=== PATIENT | male | born 1965 | race Caucasian/White ===

== ENCOUNTER 2016-08-10 19:41 | Emergency (ER) | payer OTHER ==
[~2016-08-10] VITALS: Ht 177.8 cm; Wt 122.7 kg
[2016-08-10 19:44] VITALS: BP 125/83; PULSE 64; RESP 16; O2SAT 96
[2016-08-10] MEDS ORDERED: TETANUS TOXOID ADSORBED IM ONE (21:00)
--- NOTE | 2016-08-10 21:09 | ED.REPORT ---
HPI-General Illness Date of Service Aug 10, 2016 ED Provider: Vasquez Last DO Mr. Trace Palacios is a 50-year-old man who presents to the scheduled time emergency department with a 2 cm laceration on the lateral palmar aspect midway on the first digit on the left hand. He states that around 3 PM he was chiseling and slipped and cut his thumb had a difficult time stopping the bleeding. He states that he does not have decreased sensation also states that he does not have decreased range of motion and the bleeding was never pulsatile. Nursing Notes Stated Complaint: L HAND LACERATION Chief Complaint: Laceration Nursing Notes Reviewed: Yes Allergies: Coded Allergies: No Known Allergies (Unverified , 08/10/16) General Time Seen by MD: 21:00 Chief Complaint Other (Left 1st digit 3cm lateral aspect mid way laceration) Physical Exam Vital Signs Vital Signs Date Time Temp Pulse Resp B/P Pulse Ox O2 Delivery O2 Flow Rate FiO2 08/10/16 19:44 36.2 64 16 125/83 96 Room Air General/Constitutional: Well-developed, Well-nourished Head / Eyes: Atraumatic, Normocephalic, PERRL ENT: Mucous membranes moist, Conjunctiva normal, No scleral icterus Neck: Supple, Non-tender, Full range of motion Respiratory: Breath sounds normal, Clear to auscultation, No respiratory distress Cardiovascular: Regular rate & rhythm, Heart sounds normal, Intact distal pulses Abdomen / GI: Soft, Non-tender, No guarding, No rebound, No distention Back: No CVA tenderness Lymphatic: No lymphadenopathy Extremities: Vascular intact, Neuro intact, No swelling, No tenderness Skin: Warm, Dry, No cyanosis Neurologic: Alert, Oriented, Nonfocal Psychiatric: Mood/affect normal, Behavior normal, Normal thought content 2 cm full-thickness, clean, linear laceration over the left hand, palmar aspect, just at the base of the thumb. His thenar motion and strength are fully intact in all directions. He has normal distal sensation Procedures Procedure Notes: 2 cm laceration on the lateral palmar aspect midway on the first digit on the left hand was irrigated and cleansed no evidence of bony or tendon involvement. Laceration was irrigated and cleansed in the usual manner and 4 simple interrupted sutures using 5-0 nylon were applied in sterile fashion to the laceration with good results. Patient was given a TdAP instructions on removal of sutures and 10-14 days' time. Re-Eval/Medical Decision Med Decision/Clinical Course Mr. Trace Palacios is a 50-year-old man who presents to the scheduled time emergency department with a 2 cm laceration on the lateral palmar aspect midway on the first digit on the left hand. He states that around 3 PM he was chiseling and slipped and cut his thumb had a difficult time stopping the bleeding. He states that he does not have decreased sensation also states that he does not have decreased range of motion and the bleeding was never pulsatile. In the emergency department he received TDAP Booster and 4 sutures. He was informed not to submerge the sutures for any prolonged period of time until they are removed, and to keep the wound dry for 24 hours. He was also instructed to return if there are any signs of infection Discharge & Departure Primary Impression: Laceration Disposition: Home Discharge Condition All VS Reviewed: Yes Condition: Stable Patient Instructions: Finger Laceration (ED) Additional Instructions: During you visit to [facility] Emergency Department we applied for sutures to your left thumb administered a tetanus booster Do not hesitate to call emergency services or your primary care physician if you experience any of the following. -High unrelenting fevers. -Severe inflammation of the laceration. -Uncontrolled continued bleeding of laceration. -Uncontrolled vomiting. -Severe hypertension. -Syncope or loss of consciousness. -Chest pain or severe shortness of breath. Follow up for suture removal in 10-14 days' time. Attending Statement I saw and evaluated this patient with Dr. Guido and agree with the documentation as above. CRAIG GUIDO DO Aug 10, 2016 21:09 Vasquez Last DO Aug 12, 2016 09:03
[2016-08-10] MEDS ORDERED: Lidocaine 1% 50 mL Inj NERVEBLOCK ONE (21:10)
[2016-08-10] MEDS ORDERED: TdaP Vaccine 0.5 mL Inj IM ONE (21:20)
== END 2016-08-10 22:44 | disposition home or self-care (01) ==
LOC: SED 19:41
DX: S61.412A Laceration without foreign body of left hand, initial encounter (principal); W27.0XXA Contact with workbench tool, initial encounter; Y93.89 Activity, other specified; Y92.9 Unspecified place or not applicable; Y99.8 Other external cause status; Z23 Encounter for immunization